=== PATIENT | male | born 1960 | race Caucasian/White ===

== ENCOUNTER → 2017-02-26 | Outpatient (CLI) | payer MEDICARE, OTHER | LOC: LAB 11:28 | DX: E89.2 Postprocedural hypoparathyroidism (principal); E83.51 Hypocalcemia | CPT/HCPCS: 36415; 82330; 84100 ==

== ENCOUNTER 2021-05-30 19:36 | Emergency (ER) | payer MEDICARE, OTHER ==
[~2021-05-30 19:36] MED LIST: ASPIRIN EC81 MG PO; CALCITRIOL0.25 MCG PO; CEFPODOXIME PR200 MG PO; CLOBETASOL EMO100 GM TP; DIPROSONE 0.05%15 G1 EXT; DITROPAN 5 MG TA5 MG PO; LACTINEX TABLET1 EA PO; NIZORAL 2% SHA120 ML EXT; RISPERDAL 1MG TA1 MG PO; SYNTHROID175 MCG PO; TRAZODONE HCL150 MG PO; TUMS200 MG PO; VISTARIL25 MG PO; ZANTAC150 MG PO; ZOLOFT100 MG PO; ZYRTEC10 M3 PO
== END 2021-05-31 00:35 | disposition home or self-care (01) ==
LOC: ER1 19:36
DX: S01.81XA Laceration without foreign body of other part of head, initial encounter (principal); W19.XXXA Unspecified fall, initial encounter; Y92.009 Unspecified place in unspecified non-institutional (private) residence as the place of occurrence of the external cause
CPT/HCPCS: 12013; 70450; 70486; 72125; 99284

== ENCOUNTER 2022-01-09 18:48 | Emergency (ER) | payer MEDICARE, OTHER ==
[2022-01-10 00:54] LABS: RED BLOOD COUNT 4.36 M/UL (4.20-5.50); WHITE BLOOD COUNT 17.7 K/UL (4.5-11.0)
== END 2022-01-10 03:55 | disposition short-term general hospital (02) ==
LOC: ER1 18:48
PROVIDERS: Family Medicine
DX: S02.652A Fracture of angle of left mandible, initial encounter for closed fracture (principal); S02.642A Fracture of ramus of left mandible, initial encounter for closed fracture; W19.XXXA Unspecified fall, initial encounter
CPT/HCPCS: 70486; 80053; 84439; 84443; 85025; 96374; 99284; J0295